=== PATIENT | female | born 1960 | race Caucasian/White ===

== ENCOUNTER 2022-03-03 13:43 | Emergency (ER) | payer BC ==
[~2022-03-03] VITALS: Ht 172.7 cm; Wt 99.3 kg
[~2022-03-03 13:43] MED LIST: ACET-812 PO; DOCU250C96 PO; ENOX40SY7 SUBCUT; NITR100C6 PO; POLY17PO10 PO; SENN8.6C6 PO; TRAM50TA2 PO
[2022-03-03 14:25] VITALS: BP 148/76
[2022-03-03] MEDS ORDERED: CEPH250T PO (16:22)
== END 2022-03-03 16:47 | disposition home or self-care (01) ==
LOC: ER 13:44
DX: I80.02 Phlebitis and thrombophlebitis of superficial vessels of left lower extremity (principal); M25.562 Pain in left knee; Z86.718 Personal history of other venous thrombosis and embolism; Z88.5 Allergy status to narcotic agent; Z79.2 Long term (current) use of antibiotics; Z79.899 Other long term (current) drug therapy
CPT/HCPCS: 93971; 99284